=== PATIENT | male | born 1945 | race Caucasian/White ===

== ENCOUNTER 2016-07-12 10:44 | Day surgery (SDC) | payer MEDICARE, OTHER ==
--- NOTE | ~2016-07-12 | EGD ---
EGD REPORT [facility] [address] [address] NAME: YEISON BARR : [birth year] STATUS : REG [facility]#: [id number] AGE: 70 ADM/REG DATE : 07/12/16 MR#: [id number] REPORT SERV DATE: 07/12/16 DICTATED BY: GREER SWAIN DATE: 07/12/16 REPORT STATUS : Draft TRANSCRIBED BY: [facility] DATE: 07/12/16 [facility] Center Patient Name: Yeison Barr Date of : 1945 Attending MD: GREER SWAIN MD Procedure Date No Time: 07/12/2016 Procedure: Colonoscopy Indications: Screening for colorectal malignant neoplasm Referring MD: NENA CABRAL Medicines: Propofol per Anesthesia Complications: No immediate complications. Procedure: Pre-Anesthesia Assessment: - ASA Grade Assessment: III - A patient with severe systemic disease. After I obtained informed consent, the scope was passed under direct vision. Throughout the procedure, the patient's blood pressure, pulse, and oxygen saturations were monitored continuously. The CF [id number] was introduced through the anus and advanced to the terminal ileum. The colonoscopy was performed without difficulty. The patient tolerated the procedure well. The quality of the bowel preparation was good. Findings: The perianal and digital rectal examinations were normal. The terminal ileum appeared normal. The colon (entire examined portion) appeared normal. A sessile polyp was found in the cecum. The polyp was 10 mm in size. The polyp was removed with a piecemeal technique using a hot snare. Resection and retrieval were complete. Multiple small and large-mouthed diverticula were found in the recto-sigmoid colon, in the sigmoid colon, in the descending colon, in the transverse colon, in the ascending colon and in the cecum. A sessile polyp was found in the distal sigmoid colon. The polyp was 3 mm in size. The polyp was removed with a hot snare. Resection and retrieval were complete. Non-bleeding internal hemorrhoids were found during retroflexion and were mild, small and Grade I (internal hemorrhoids that do not prolapse). Impression: - The examined portion of the ileum was normal. - The entire examined colon is normal. - One 10 mm polyp in the cecum. Resected and retrieved. - Diverticulosis in the recto-sigmoid colon, in the sigmoid colon, in the descending colon, in the transverse colon, in the ascending colon and in the EGD REPORT [address] [address] NAME: YEISON BARR : [birth year] STATUS : REG [facility] [place] PAT#: [id number] AGE: 70 ADM/REG DATE : 07/12/16 MR#: [id number] REPORT SERV DATE: 07/12/16 DICTATED BY: GREER SWAIN DATE: 07/12/16 REPORT STATUS : Draft TRANSCRIBED BY: [facility] DATE: 07/12/16 cecum. - One 3 mm polyp in the distal sigmoid colon. Resected and retrieved. - Non-bleeding internal hemorrhoids. Recommendation: - Patient has a contact number available for emergencies. The signs and symptoms of potential delayed complications were discussed with the patient. Return to normal activities tomorrow. Written discharge instructions were provided to the patient. - Return to previous diet. - Continue present medications. - Await pathology results. - Repeat colonoscopy in 3 - 5 years for surveillance based on pathology results. - Return to my office as previously scheduled. - Discharge patient to home. Procedure Code(s): --- Professional --- 55166, Colonoscopy, flexible, proximal to splenic flexure; with removal of tumor(s), polyp(s), or other lesion(s) by snare technique Diagnosis Code(s): --- Professional --- K64.0, First degree hemorrhoids K57.30, Diverticulosis of large intestine without perforation or abscess without bleeding D12.5, Benign neoplasm of sigmoid colon D12.0, Benign neoplasm of cecum Z12.11, Encounter for screening for malignant neoplasm of colon CPT copyright 2013 [employer]. All rights reserved. The codes documented in this report are preliminary and upon health information coder review may be revised to meet current compliance requirements. Greer Swain MD GREER SWAIN MD 07/12/2016 2:19 PM This report has been signed electronically. Number of Addenda: 0 Note Initiated On: 07/12/2016 1:28 PM Scope Withdrawal Time 6 hours 58 minutes 4 seconds EGD REPORT [facility] [address] [address] NAME: YEISON BARR : [birth year] STATUS : REG [facility] [place] PAT#: [id number] AGE: 70 ADM/REG DATE : 07/12/16 MR#: [id number] REPORT SERV DATE: 07/12/16 DICTATED BY: GREER SWAIN DATE: 07/12/16 REPORT STATUS : Draft TRANSCRIBED BY: [employer] [facility] DATE: 07/12/16 [address] [id number]
[~2016-07-12 10:44] MED LIST: ADVIL PO; ASAB PO; BETAPACE80 PO; COZ25 PO; ELIQUIS 5 MG TAB5 MG PO; FLOMAX4 PO; GLUCCHONDR PO; HYT2 PO; HYT5 PO; LOP25 PO; METHOC500B PO; NORCO1 TA2 PO; PERCOCET1 TA4 PO; PROAIR HFA INH; PROSCAR5 PO; TAMBO50 PO; TAMBOCOR PO; ULTRAM50 PO; ZOCOR20 PO
== END 2016-07-12 23:59 | disposition home or self-care (01) ==
LOC: DMU 10:44
PROVIDERS: Internal Medicine Gastroenterology
PROC: 0DBN8ZX Excision of Sigmoid Colon, Via Natural or Artificial Opening Endoscopic, Diagnostic (ICD-10-PCS; 2016-07-12)
PROC: 0DBH8ZX Excision of Cecum, Via Natural or Artificial Opening Endoscopic, Diagnostic (ICD-10-PCS; principal; 2016-07-12 11:30)
DX: Z12.11 Encounter for screening for malignant neoplasm of colon (principal); K63.5 Polyp of colon; K64.0 First degree hemorrhoids; K57.30 Diverticulosis of large intestine without perforation or abscess without bleeding; I10 Essential (primary) hypertension; I48.0 Paroxysmal atrial fibrillation; J45.909 Unspecified asthma, uncomplicated; E78.00 Pure hypercholesterolemia, unspecified; K21.9 Gastro-esophageal reflux disease without esophagitis; Z85.038 Personal history of other malignant neoplasm of large intestine; Z96.653 Presence of artificial knee joint, bilateral; Z91.02 Food additives allergy status; Z90.89 Acquired absence of other organs; Z98.890 Other specified postprocedural states
CPT/HCPCS: 88305